=== PATIENT | female | born 1995 | race Two or more races ===

== ENCOUNTER 2021-04-16 05:15 | Inpatient (IN) | payer BC ==
--- NOTE | 2021-04-16 05:18 | PCM.LDHP ---
L&D History of Present Illness - General Date of Service: 04/16/21 Admit Problem/Dx: Admission Diagnosis/Problem Admission Diagnosis/Problem 04/16/21 05:06 Stefani is a 25-year-old 3 para 2-0-0-2 female admitted on the a.m. of 04/16/2021 at 39-1/7 weeks gestational age with an JIM of 04/21/2021 for elective repeat section. Source of Information: Patient History Limitations: Reports: No Limitations - History of Present Illness Introduction:: Stefani is a 25-year-old 3 para 2-0-0-2 female admitted on the a.m. of 04/16/2021 at 39-1/7 weeks gestational age with an JIM of 04/21/2021 for elective repeat section. The procedure, its risks, benefits, alternatives of care and follow-up were discussed in detail with the patient. She appears understand, wishes to proceed and signed consent. 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 Menarche at age 12. Cycles q. 28 days and regular. Patient was not using any control at the time of conception. Her JIM of 04/21/2021 was set by an ultrasound done at 9-5/7 weeks on 09/21/2020 and supported by yet another ultrasound at 20 weeks gestational age. Her LMP was 07/18/2020 and was fairly certain. Her past obstetric history includes the followin. Female born 03/19/2013 at 39 weeks gestational age7 [facility] [place] [place] due to decreased movement and nonreassuring heart tones. Child's name is Anurag 2. Male born 09/02/2015 at 38 weeks gestational age5 pounds 8 [facility] Due to but due to nonreassuring heart tones proceeded to section. course: Patient was seen for her first bridgette visit at 9 weeks gestation. She was seen on a very regular basis throughout the . Her weight increased from 165.8 pounds to 191 pounds for approximately a 25 pound increase. Her vital signs remained stable throughout the course and her fundal height growth was appropriate. Group B strep screen is negative. She plans to breast-feed. She declined genetic testing during the course of this . She had her Tdap on 02/28/2021. She is rubella immune. Hepatitis A immunizations occurred in 2010. Hepatitis B immunizations occurred in 1996. Meningococcal immunization occurred in 2008. laboratory testing: Blood is a positive with a negative antibody screen. First hemoglobin was 13.6 g/dL and platelets were 183,000. She is rubella immune. RPR was nonreactive. Urine culture was negative. Hepatitis B surface antigen and HIV assays were both negative as were chlamydia and gonorrhea tests. Second trimester hemoglobin was 12.4 g/dL and platelets were 175,000. 1 hour GTT was normal at 100. RPR on 01/16/2021 was nonreactive. Group B strep screen was negative. Allergies: None medications: 1. vitamins 1 daily Past medical history: 1. History of urinary tract infections 2. Anxiety and depression symptoms since age 18 has been on medications in the past but not presently. Past surgical history: 1. x2 2. Adenoidectomy Family history: Mother is alive but has diabetes and asthma and a history of seizures. Maternal grandfather is unknown. Maternal grandmother is se condary to ovarian cancer at an age older than 70. Father is alive with hypertension and hyperlipidemia. Paternal grandfather history is uncertain. Paternal grandmother deceasedcause unknown. 2 brothers are alive and well. 2 sisters are alive. One with bipolar disorder. There is a family history of cancer but type is unknown. There is no family history of bleeding, clotting, anesthesia related problems or concerns. Social history: Stefani is . is Jonas Escudero. 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 They live in [place], [place]. She does not use any significant muscle alcohol, drugs or tobacco. Review of systems: In general patient has no complaints. The baby has been active. She has had intermittent Chip Castillo contractions. Skin: Negative Lungs: No infectious symptoms or shortness of breath Cardiovascular: No chest pain or exercise intolerance Breasts: No lumps, changes in size, pain, dimpling, discharge or axillary or supraclavicular concerns. GI: Normal : Body habitus changes secondary to . Musculoskeletal: Negative Neurological: Negative Physical exam: In general the patient is well-developed, well-nourished, pleasant female of stated age in no acute distress. On last evaluation in clinic on 04/10/2021 blood pressure was 110/78. Weight was 191. heart rate was 131. Pregravid weight was 165.8 and pregravid body mass index was 26.6. Height is 5 feet 6 inches. Skin is warm dry without lesions. HEENT, neck and back within normal limits. Lungs are clear with good breath sounds in all lung scott. Cardiovascular exam shows regular and rhythm without murmurs. Breast exam is deferred having been done at first visit and found to be normal. Patient does plan to breast-feed. Abdomen is gravid with last fundal height at 39.5 inches. Baby in vertex presentation by Eyal maneuvers. Genital exam per digital evaluation last done on 04/04/2021 shows cervix to be closed, very soft, 70% effaced.. Extremities and neurological exam are grossly within normal limits. - Related Data Allergies/Adverse Reactions: Allergies Allergy/AdvReac Type Severity Reaction Status Date / Time No Known Allergies Allergy Verified 04/15/21 14:14 Home Medications: Home Meds Pnv No.95/Ferrous Fum/Folic AC [ Tablet] 1 tab PO DAILY 04/15/21 [History] Past Medical History ELECTRICAL ENGINEERING MANAGER History: Reports: Psychiatric History: Reports: Anxiety, Depression Other Psychiatric History: Not currently on medications, states she is coping well. - Past Surgical History HEENT Surgical History: Reports: Adenoidectomy Social & Family History - Family History Family Medical History: No Pertinent Family History - Tobacco Use Tobacco Use Status *Q: Former Tobacco User Used Tobacco, but Quit: No - Caffeine Use Caffeine Use: Reports: None - Recreational Drug Use Recreational Drug Use: No H&P Review of Systems - Review of Systems: Review Of Systems: See Below L&D Exam - Exam Exam: See Below - Vital Signs Weight: 88.451 kg - Problem List (1) 39 weeks gestation of SNOMED Code(s): 93097455 ICD Code: Z3A.39 - 39 WEEKS GESTATION OF Status: Acute (2) Previous section SNOMED Code(s): 486100270 ICD Code: Z98.891 - HISTORY OF UTERINE SCAR FROM PREVIOUS SURGERY Status: Acute Problem List Initiated/Reviewed/Updated: Yes Assessment/Plan Comment:: 1. Stefani is a 25-year-old 3 para 2-0-0-2 female admitted on the a.m. of 04/16/2021 at 39-1/7 weeks gestational age with an JIM of 04/21/2021 for elective repeat section. The procedure, risk, benefits, alternatives of care and follow-up were discussed in detail with patient. She appears understand and wishes to proceed. Consent has been signed. 2. Group B strep screen negative 3. Patient plans to breast-feed 4. Risk factors for the include history of x2 5. Patient is rubella immune 6. Patient had her Tdap shot in February 2021 7. Blood is A+ Plan: 1. Repeat lower uterine segment transverse section through Pfannenstiel skin incision under spinal block to be performed on 04/16/2021. 2. DVT prophylaxis with SCDs 3. Infection prophylaxis with Ancef 2 g IV preop 4. Support breast-feeding decision 5. Admission laboratory testing consist of CBC, type and screen, RPR, Covid19 testing
[2021-04-16] MEDS ORDERED: Citric Acid/Sodium Citrate Solution 30 ML Cup PO ONE (05:32)
[2021-04-16] MEDS ORDERED: ceFAZolin 2 GM in Premix Bag 1 BAG IV ONE (05:32)
[2021-04-16] MEDS ORDERED: Sodium Chloride 0.9% 10 ML Syringe FLUSH PRN (05:32)
[2021-04-16] MEDS ORDERED: Ondansetron 4 MG/2 ML SDV IVPUSH PRN (05:32)
[2021-04-16] MEDS ORDERED: Metoclopramide 10 MG/2 ML SDV IVPUSH ONE (05:32)
[2021-04-16] MEDS ORDERED: Oxytocin/Lactated Ringers 20 UNIT/1,000 ML BAG IV SCH (05:45)
[2021-04-16] MEDS: Lactated Ringers 1,000 ML IV SCH ×2 (06:23→06:59)
[2021-04-16] MEDS ORDERED: ceFAZolin 1 GM Vial ONE (07:09)
[2021-04-16] MEDS ORDERED: Phenylephrine 1% 10 MG/ML SDV ONE (07:09)
[2021-04-16] MEDS ORDERED: Bupivacaine 0.5% 30 ML SDV ONE (07:09)
[2021-04-16] MEDS ORDERED: Morphine PF 10 MG/10 ML SDV ONE (07:09)
[2021-04-16] MEDS ORDERED: Ketorolac 30 MG/ML SDV ONE (07:10)
[2021-04-16] MEDS ORDERED: Oxytocin 10 Units/1 ML SDV ONE (07:10)
[2021-04-16] MEDS ORDERED: Lactated Ringers 1,000 ML ONE (07:13)
[2021-04-16] MEDS ORDERED: diphenhydrAMINE 50 MG/ML SDV IVPUSH PRN ×2 (08:24→09:59)
--- NOTE | 2021-04-16 08:25 | PCM.POSTAN ---
POST ANESTHESIA ASSESSMENT - MENTAL STATUS Mental Status: Alert, Oriented - VITAL SIGNS Vital Signs: Last Vital Signs Temp 36.5 C 04/16/21 05:39 Pulse 73 04/16/21 05:39 Resp 16 04/16/21 05:39 BP 105/74 04/16/21 05:39 Pulse Ox 98 04/16/21 05:39 - RESPIRATORY Respiratory Status: Respiratory Rate WNL, Airway Patent, O2 Saturation Stable, Supplemental Oxygen - CARDIOVASCULAR CV Status: Pulse Rate WNL - GASTROINTESTINAL GI Status: No Symptoms - PAIN Pain Score: 0 - POST OP HYDRATION Hydration Status: Adequate & Stable - OBSERVATIONS Free Text/Narrative:: no anesthesia complications noted
--- NOTE | 2021-04-16 08:27 | PCM.PREANE ---
Preanesthetic Assessment - Procedure Proposed Procedure: spinal for repeat - Anesthesia/Transfusion/Family Hx Anesthesia History: Prior Anesthesia Without Reaction Family History of Anesthesia Reaction: No Transfusion History: No Prior Transfusion(s) - Review of Systems General: No Symptoms Pulmonary: No Symptoms Cardiovascular: No Symptoms Gastrointestinal: No Symptoms Neurological: No Symptoms Other: Reports: Anxiety - Physical Assessment NPO Status Date: 04/15/21 NPO Status Time: 00:00 Vital Signs: Last Vital Signs Temp 36.5 C 04/16/21 05:39 Pulse 73 04/16/21 05:39 Resp 16 04/16/21 05:39 BP 105/74 04/16/21 05:39 Pulse Ox 98 04/16/21 05:39 Height: 1.68 m Weight: 87.543 kg ASA Class: 2 Mental Status: Alert & Oriented x3 Airway Class: Mallampati = 1 Dentition: Reports: Normal Dentition Thyro-Mental Finger Breadths: 3 Mouth Opening Finger Breadths: 3 ROM/Head Extension: Full Lungs: Clear to Auscultation, Normal Respiratory Effort Cardiovascular: Regular Rate, Regular Rhythm - Lab Values: Laboratory Last Values WBC 6.43 K/mm3 (3.98-10.04) 04/16/21 05:40 RBC 3.46 M/mm3 (3.98-5.22) L 04/16/21 05:40 Hgb 11.7 gm/dl (11.2-15.7) 04/16/21 05:40 Hct 34.6 % (34.1-44.9) 04/16/21 05:40 MCV 100.0 fl (79.4-94.8) H 04/16/21 05:40 MCH 33.8 pg (25.6-32.2) H 04/16/21 05:40 MCHC 33.8 g/dl (32.2-35.5) 04/16/21 05:40 RDW Std Deviation 44.5 fL (36.4-46.3) 04/16/21 05:40 Plt Count 137 K/mm3 (182-369) L 04/16/21 05:40 MPV 10.7 fl (9.4-12.3) 04/16/21 05:40 Neut % (Auto) 57.5 % (34.0-71.1) 04/16/21 05:40 Lymph % (Auto) 33.1 % (19.3-51.7) 04/16/21 05:40 [place] % (Auto) 6.8 % (4.7-12.5) 04/16/21 05:40 Eos % (Auto) 1.9 (0.7-5.8) 04/16/21 05:40 Baso % (Auto) 0.2 % (0.1-1.2) 04/16/21 05:40 Neut # (Auto) 3.70 K/mm3 (1.56-6.13) 04/16/21 05:40 Lymph # (Auto) 2.13 K/mm3 (1.18-3.74) 04/16/21 05:40 [place] # (Auto) 0.44 K/mm3 (0.24-0.36) H 04/16/21 05:40 Eos # (Auto) 0.12 K/mm3 (0.04-0.36) 04/16/21 05:40 Baso # (Auto) 0.01 K/mm3 (0.01-0.08) 04/16/21 05:40 Urine Color Light yellow (Yellow) 04/07/21 22:30 Urine Appearance Clear (Clear) 04/07/21 22:30 Urine pH 7.0 (5.0-8.0) 04/07/21 22:30 Ur Specific [place] 1.010 (1.005-1.030) 04/07/21 22:30 Urine Protein Negative (Negative) 04/07/21 22:30 Urine Glucose (UA) Negative (Negative) 04/07/21 22:30 Urine Ketones Negative (Negative) 04/07/21 22:30 Urine Occult Blood Negative (Negative) 04/07/21 22:30 Urine Nitrite Negative (Negative) 04/07/21 22:30 Urine Bilirubin Negative (Negative) 04/07/21 22:30 Urine Urobilinogen 0.2 (0.2-1.0) 04/07/21 22:30 Ur Leukocyte Esterase Negative (Negative) 04/07/21 22:30 Urine RBC 0-5 /hpf (0-5) 04/07/21 22:30 Urine WBC 0-5 /hpf (0-5) 04/07/21 22:30 Ur Squamous Epith Cells 0-5 /hpf (0-5) 04/07/21 22:30 Urine Bacteria Few /hpf (FEW) 04/07/21 22:30 Urine Mucus Few /hpf (FEW) 04/07/21 22:30 SARS-CoV-2 RNA (DELORIS) Negative (NEGATIVE) 04/16/21 05:30 Blood Type A POSITIVE 04/16/21 05:40 Gel Antibody Screen Negative 04/16/21 05:40 - Allergies Allergies/Adverse Reactions: Allergies Allergy/AdvReac Type Severity Reaction Status Date / Time No Known Allergies Allergy Verified 04/15/21 14:14 - Anesthesia Plan Pre-Op Medication Ordered: None - Acknowledgements Anesthesia Type Planned: Spinal Pt an Appropriate Candidate for the Planned Anesthesia: Yes Alternatives and Risks of Anesthesia Discussed w Pt/Guardian: Yes Pt/Guardian Understands and Agrees with Anesthesia Plan: Yes PreAnesthesia Questionnaire Gastrointestinal History: Reports: GERD 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 - Past Surgical History HEENT Surgical History: Reports: Adenoidectomy - SUBSTANCE USE Tobacco Use Status *Q: Former Tobacco User Recreational Drug Use History: No - HOME MEDS Home Medications: Home Meds Pnv No.95/Ferrous Fum/Folic AC [ Tablet] 1 tab PO DAILY 04/15/21 [History] - CURRENT (IN HOUSE) MEDS Current Meds: Current Medications Diphenhydramine HCl (Diphenhydramine 50 Mg/Ml Sdv) 25 mg IVPUSH Q6H PRN PRN Reason: Itching Oxytocin/Lactated Ringer's (Pitocin In Lr 20 Units/1,000 Ml) 20 unit in 1,000 mls @ 500 mls/hr IV TITRATE HARSHA; Protocol Lactated Ringer's (Ringers, Lactated) 1,000 mls @ 125 mls/hr IV ASDIRECTED HARSHA Last Admin: 04/16/21 06:59 Dose: 125 mls/hr Documented by: Ondansetron HCl (Ondansetron 4 Mg/2 Ml Sdv) 4 mg IVPUSH Q4H PRN PRN Reason: Nausea/Vomiting Sodium Chloride (Sodium Chloride 0.9% 10 Ml Syringe) 10 ml FLUSH ASDIRECTED PRN PRN Reason: Keep Vein Open Discontinued Medications Bupivacaine HCl (Bupivacaine 0.5% 30 Ml Sdv) Confirm Administered Dose 30 ml .ROUTE .STK-MED ONE Stop: 04/16/21 07:10 Cefazolin Sodium (Cefazolin 1 Gm Vial) Confirm Administered Dose 2 gm .ROUTE .STK-MED ONE Stop: 04/16/21 07:10 Citric Acid/Sodium Citrate (Citric Acid/Sodium Citrate Solution 30 Ml Cup) 30 ml PO ONETIME ONE Stop: 04/16/21 05:33 Last Admin: 04/16/21 06:59 Dose: 30 ml Documented by: Cefazolin Sodium/Dextrose 2 gm (/ Premix) 50 mls @ 100 mls/hr IV ONETIME ONE Stop: 04/16/21 06:01 Lactated Ringer's (Ringers, Lactated) Confirm Administered Dose 1,000 mls @ as directed .ROUTE .STK-MED ONE Stop: 04/16/21 07:14 Ketorolac Tromethamine (Ketorolac 30 Mg/Ml Sdv) Confirm Administered Dose 30 mg .ROUTE .STK-MED ONE Stop: 04/16/21 07:11 Metoclopramide HCl (Metoclopramide 10 Mg/2 Ml Sdv) 10 mg IVPUSH ONETIME ONE Stop: 04/16/21 05:33 Last Admin: 04/16/21 06:59 Dose: 10 mg Documented by: Morphine Sulfate (Morphine Pf 10 Mg/10 Ml Sdv) Confirm Administered Dose 10 mg .ROUTE .STK-MED ONE Stop: 04/16/21 07:10 Oxytocin (Oxytocin 10 Units/1 Ml Sdv) Confirm Administered Dose 20 unit .ROUTE .STK-MED ONE Stop: 04/16/21 07:11 Phenylephrine HCl (Phenylephrine 1% 10 Mg/Ml Sdv) Confirm Administered Dose 10 mg .ROUTE .STK-MED ONE Stop: 04/16/21 07:10
--- NOTE | 2021-04-16 08:33 | PCM.OPNOTE ---
- General Post-Op/Procedure Note Date of Surgery/Procedure: 04/16/21 Operative Procedure(s): Repeat lower uterine segment transverse section through Pfannenstiel skin incision Findings: Intra-abdominal wall showed moderate scarring. Ovaries uterus and fallopian tubes were consistent with normal term . Amniotic fluid was clear. Baby in cephalic presentation. Nuchal cord x2 loosereduced over the baby's head. Female Apgars 9 and 9, weight 3290 g (7 pounds 4 ounces delivered at 0752 hrs. on 04/16/2021. Pre Op Diagnosis: 1. 39-week . 2. History of previous x2 with desire for repeat section Post-Op Diagnosis: Same Anesthesia Technique: Spinal Other Anesthesia Type: Marcaine 0.5% - 20 mLlocal Primary Surgeon: Eliseo Martin Secondary Surgeon: Msefin Thomas Anesthesia Provider: Charbel Davenport Reason Ropewalk Rope Maker Was Necessary: Retraction, assistance, patient safety, quality of care. Fluid Replacement, Intraop: 2,600 Output, Urine Amount: 125 EBL in mLs: 600 Drain/Tube Comments:: Indwelling bladder catheter Complications: None Condition: Good Free Text/Narrative:: Surgery duration: 25 minutes Surgery duration: Procedure: The patient is appropriately consented. Patient was transferred to the room and placed in a sitting position. Spinal anesthesia was administered. After confirmation of adequate anesthesia patient was placed in a supine position with a wedge under her right side to facilitate left lateral positioning. The patient was prepped and draped in usual fashion after Davalos catheter was already placed . The anesthetic was checked and found to be adequate. 20 mL of Marcaine 0.5% was injected locally in the Pfannenstiel inc ision site. The Pfannenstiel skin incision was then made and carried down through skin, subcutaneous and fascial layers. The fascia was then undermined superiorly and inferiorly to allow for adequate operating room. The recti muscles midline and preperitoneal fat was bluntly dissected. Peritoneal cavity was entered longitudinally. The vesicouterine peritoneum was then incised transversely and bladder flap was developed. Myometrium was found to be very thin no more than 2 mm at the site of incision. Myometrium was incised transversely to the level of the amniotic sac. This incision was extended bilaterally in a blunt fashion. The amniotic sac was then ruptured resulting in clear amniotic fluid. A hand is placed in the low uterine segment and the baby's head was brought forth through the incision. The baby was completely delivered using fundal pressure in a routine fashion. The nose and mouth were bulb suctioned. Baby's cord was clamped x2 cut and baby was handed off to attending outpatient case manager Dr Ledesma. Placenta was expressed after cord blood was obtained. Uterus was then exteriorized to allow for easier closure. The cervix was assessed and found to be dilated adequately to allow egress of blood. The uterus was closed in 2 layers. The first layer a running locked suture of 0 Monocryl, the second layer a running locked vertical mattress suture of 0 Monocryl. Hemostasis confirmed at this time. Sponge instrument needle counts are correct. The uterus was returned to the abdominal cavity and lateral gutters were cleared of blood. Once again sponge needle counts are correct. The anterior abdominal wall was closed with a #1 PDS suture from angle to angle. The subcutaneous area was found to be free of any bleeders. interrupted sutures of 3-0 Monocryl were used to reapproximate the subcutaneous layer.Skin was closed with a running subcuticular stitch of 3-0 Monocryl in a vertical mattress suture fashion using a Ben needle. Prineo mesh/glue was then applied to further approximate the incision. It should be noted that patient received 2 g of Ancef preoperatively for infection prophylaxis and had Pitocin infused after delivery of the placenta to facilitate uterine contraction. She also had sequential compression stockings in place for DVT prophylaxis. Patient was discharged from the operating room in satisfactory condition.
[2021-04-16] MEDS ORDERED: Oxytocin/Lactated Ringers 10 UNIT/1,000 ML BAG IV ONE (08:56)
[2021-04-16] MEDS ORDERED: Oxytocin/Lactated Ringers 10 UNIT/1,000 ML BAG IV SCH (09:05)
[2021-04-16] MEDS ORDERED: Ondansetron 4 MG/2 ML SDV IV PRN (09:59)
[2021-04-16] MEDS ORDERED: Dextrose 5%-Lactated Ringers 1,000 ML IV SCH (09:59)
[2021-04-16] MEDS ORDERED: Naloxone 0.4 MG/ML SDV IVPUSH PRN (09:59)
[2021-04-16] MEDS ORDERED: Docusate Sodium 100 MG Cap PO PRN (09:59)
[2021-04-16] MEDS ORDERED: ePHEDrine 50 MG/ML SDV IVPUSH PRN (09:59)
[2021-04-16] MEDS: Simethicone 80 MG Tab.Chew PO SCH ×4 (10:47→20:51)
[2021-04-16] MEDS: Prenatal Multivitamin with Calcium/Folic Acid/Iron Tab PO SCH (10:47)
[2021-04-16] MEDS ORDERED: Ibuprofen 800 MG Tab PO SCH (13:30)
[2021-04-16] MEDS: Acetaminophen/oxyCODONE 325-5 MG Tab PO PRN ×2 (16:16→20:52)
[2021-04-17] MEDS: Ibuprofen 800 MG Tab PO SCH ×3 (00:32→16:48)
[2021-04-17] MEDS: Acetaminophen/oxyCODONE 325-5 MG Tab PO PRN ×5 (03:41→21:03)
[2021-04-17] MEDS: Prenatal Multivitamin with Calcium/Folic Acid/Iron Tab PO SCH (08:19)
[2021-04-17] MEDS: Simethicone 80 MG Tab.Chew PO SCH ×4 (08:19→21:02)
--- NOTE | 2021-04-17 09:10 | PCM.PNPP ---
- General Info Date of Service: 04/17/21 Functional Status: Reports: Pain Controlled - Review of Systems General: Reports: No Symptoms HEENT: Reports: No Symptoms Pulmonary: Reports: No Symptoms Cardiovascular: Reports: No Symptoms Gastrointestinal: Reports: No Symptoms Genitourinary: Reports: No Symptoms Musculoskeletal: Reports: No Symptoms Skin: Reports: No Symptoms Neurological: Reports: No Symptoms Psychiatric: Reports: No Symptoms - General Info Date of Service: 04/17/21 - Patient Data Vital Signs - Most Recent: Last Vital Signs Temp 36.6 C 04/17/21 03:43 Pulse 64 04/17/21 03:43 Resp 14 04/17/21 07:00 BP 113/74 04/17/21 03:43 Pulse Ox 99 04/17/21 07:00 Weight - Most Recent: 87.543 kg I&O - Last 24 Hours: Intake & Output 04/16/21 04/17/21 04/17/21 22:59 06:59 14:59 Intake Total 180 0 Output Total 1500 1150 Balance -1320 -1150 0 Lab Results - Last 24 Hours: Laboratory Results - last 24 hr 04/16/21 04/17/21 Range/Units 05:40 05:15 WBC 7.88 (3.98-10.04) K/mm3 RBC 2.77 L (3.98-5.22) M/mm3 Hgb 9.4 L D (11.2-15.7) gm/dl Hct 28.0 L (34.1-44.9) % MCV 101.1 H (79.4-94.8) fl MCH 33.9 H (25.6-32.2) pg MCHC 33.6 (32.2-35.5) g/dl RDW Std Deviation 43.9 (36.4-46.3) fL Plt Count 120 L (182-369) K/mm3 MPV 10.8 (9.4-12.3) fl Neut % (Auto) 68.1 (34.0-71.1) % Lymph % (Auto) 23.6 (19.3-51.7) % [place] % (Auto) 6.1 (4.7-12.5) % Eos % (Auto) 1.6 (0.7-5.8) Baso % (Auto) 0.3 (0.1-1.2) % Neut # (Auto) 5.37 (1.56-6.13) K/mm3 Lymph # (Auto) 1.86 (1.18-3.74) K/mm3 [place] # (Auto) 0.48 H (0.24-0.36) K/mm3 Eos # (Auto) 0.13 (0.04-0.36) K/mm3 Baso # (Auto) 0.02 (0.01-0.08) K/mm3 RPR Non-reactive (NONREACTIVE) Med Orders - Current: Current Medications Diphenhydramine HCl (Diphenhydramine 50 Mg/Ml Sdv) 25 mg IVPUSH Q6H PRN PRN Reason: Itching Diphenhydramine HCl (Diphenhydramine 50 Mg/Ml Sdv) 25 mg IVPUSH Q6H PRN PRN Reason: Itching or Nausea Docusate Sodium (Docusate Sodium 100 Mg Cap) 100 mg PO Q12H PRN PRN Reason: Constipation Ephedrine Sulfate (Ephedrine 50 Mg/Ml Sdv) 5 mg IVPUSH SEECOMMENT PRN PRN Reason: Other Oxytocin/Lactated Ringer's (Pitocin In Lr 10 Units/1,000 Ml) 10 unit in 1,000 mls @ 750 mls/hr IV TITRATE HARSHA; Protocol Last Admin: 04/16/21 09:05 Dose: 20.83 munits/min, 125 mls/hr Documented by: Ibuprofen (Ibuprofen 800 Mg Tab) 800 mg PO Q8H [facility] Last Admin: 04/17/21 08:20 Dose: 800 mg Documented by: Naloxone HCl (Naloxone 0.4 Mg/Ml Sdv) 0.1 mg IVPUSH SEECOMMENT PRN PRN Reason: Respiratory Depression Ondansetron HCl (Ondansetron 4 Mg/2 Ml Sdv) 4 mg IV Q4H PRN PRN Reason: Nausea/Vomiting Oxycodone/Acetaminophen (Acetaminophen/Oxycodone 325-5 Mg Tab) 1 tab PO Q4H PRN PRN Reason: Pain (moderate 4-6) Last Admin: 04/17/21 08:22 Dose: 1 tab Documented by: Oxycodone/Acetaminophen (Acetaminophen/Oxycodone 325-5 Mg Tab) 2 tab PO Q4H PRN PRN Reason: Pain (severe 7-10) Last Admin: 04/17/21 03:41 Dose: 2 tab Documented by: Prenat Multivit/[place]/Iron/Folic Ac ( Multivitamin With Calcium/Folic Acid/Iron Tab) 1 each PO DAILY [facility] Last Admin: 04/17/21 08:19 Dose: 1 each Documented by: Simethicone (Simethicone 80 Mg Tab.Chew) 80 mg PO QID [facility] Last Admin: 04/17/21 08:19 Dose: 80 mg Documented by: Discontinued Medications Bupivacaine HCl (Bupivacaine 0.5% 30 Ml Sdv) Confirm Administered Dose 30 ml .ROUTE .STK-MED ONE Stop: 04/16/21 07:10 Last Admin: 04/16/21 07:31 Dose: 20 ml Documented by: Cefazolin Sodium (Cefazolin 1 Gm Vial) Confirm Administered Dose 2 gm .ROUTE .STK-MED ONE Stop: 04/16/21 07:10 Citric Acid/Sodium Citrate (Citric Acid/Sodium Citrate Solution 30 Ml Cup) 30 ml PO ONETIME ONE Stop: 04/16/21 05:33 Last Admin: 04/16/21 06:59 Dose: 30 ml Documented by: Cefazolin Sodium/Dextrose 2 gm (/ Premix) 50 mls @ 100 mls/hr IV ONETIME ONE Stop: 04/16/21 06:01 Last Admin: 04/17/21 09:07 Dose: Not Given Documented by: Oxytocin/Lactated Ringer's (Pitocin In Lr 20 Units/1,000 Ml) 20 unit in 1,000 mls @ 500 mls/hr IV TITRATE HARSHA; Protocol Last Admin: 04/16/21 07:50 Dose: 500 mls/hr Documented by: Lactated Ringer's (Ringers, Lactated) 1,000 mls @ 125 mls/hr IV ASDIRECTED [facility] Last Admin: 04/16/21 06:59 Dose: 125 mls/hr Documented by: Lactated Ringer's (Ringers, Lactated) Confirm Administered Dose 1,000 mls @ as directed .ROUTE .STK-MED ONE Stop: 04/16/21 07:14 Oxytocin/Lactated Ringer's (Pitocin In Lr 10 Units/1,000 Ml) Confirm Administered Dose 10 unit in 1,000 mls @ as directed IV .STK-MED ONE Stop: 04/16/21 08:57 Last Admin: 04/16/21 09:11 Dose: Not Given Documented by: Dextrose/Lactated Ringer's (Dextrose 5%-Lactated Ringers) 1,000 mls @ 125 mls/hr IV ASDIRECTED [facility] Stop: 04/16/21 17:58 Last Admin: 04/16/21 12:59 Dose: 125 mls/hr Documented by: Ibuprofen (Ibuprofen 800 Mg Tab) 800 mg PO Q8H [facility] Last Admin: 04/16/21 16:10 Dose: 800 mg Documented by: Ketorolac Tromethamine (Ketorolac 30 Mg/Ml Sdv) Confirm Administered Dose 30 mg .ROUTE .STK-MED ONE Stop: 04/16/21 07:11 Metoclopramide HCl (Metoclopramide 10 Mg/2 Ml Sdv) 10 mg IVPUSH ONETIME ONE Stop: 04/16/21 05:33 Last Admin: 04/16/21 06:59 Dose: 10 mg Documented by: Morphine Sulfate (Morphine Pf 10 Mg/10 Ml Sdv) Confirm Administered Dose 10 mg .ROUTE .STK-MED ONE Stop: 04/16/21 07:10 Ondansetron HCl (Ondansetron 4 Mg/2 Ml Sdv) 4 mg IVPUSH Q4H PRN PRN Reason: Nausea/Vomiting Oxytocin (Oxytocin 10 Units/1 Ml Sdv) Confirm Administered Dose 20 unit .ROUTE .STK-MED ONE Stop: 04/16/21 07:11 Phenylephrine HCl (Phenylephrine 1% 10 Mg/Ml Sdv) Confirm Administered Dose 10 mg .ROUTE .STK-MED ONE Stop: 04/16/21 07:10 Sodium Chloride (Sodium Chloride 0.9% 10 Ml Syringe) 10 ml FLUSH ASDIRECTED PRN PRN Reason: Keep Vein Open - Infant Interaction Support Person: - Recovery Exam Fundal Tone: Firm Fundal Level: 1 Fingerbreadths Below Umbilicus Fundal Placement: Midline Lochia Amount: Scant Lochia Color: Rubra/Red Perineum Description: Intact, Minimal Bruising/Swelling Episiotomy/Laceration: None Bladder Status: Indwelling Catheter in Place Urinary Elimination: Indwelling Catheter - Exam General: Alert, Oriented HEENT: Pupils Equal Neck: Supple Lungs: Clear to Auscultation, Normal Respiratory Effort Cardiovascular: Regular Rate, Regular Rhythm GI/Abdominal Exam: Normal Bowel Sounds, Soft, Non-Tender, No Organomegaly, No Distention, No Abnormal Bruit, No Mass, Pelvis Stable Extremities: Normal Inspection, Normal Range of Motion, Non-Tender, No Pedal Edema, Normal Capillary Refill Skin: Warm, Dry, Intact Neurological: No New Focal Deficit Psy/Mental Status: Alert, Normal Affect, Normal Mood - Problem List Review Problem List Initiated/Reviewed/Updated: Yes - Assessment Assessment:: POD1 Doing well. No complaints. Hopefully home tomorrow. - Plan Plan:: 1. Stefani is a 25-year-old 3 para 2-0-0-2 female admitted on the a.m. of 04/16/2021 at 39-1/7 weeks gestational age with an JIM of 04/21/2021 for elective repeat section. The procedure, risk, benefits, alternatives of care and follow-up were discussed in detail with patient. She appearsed understand and wished to proceed. Underwent Repeat lower uterine segment transverse section through Pfannenstiel skin incision under spinal block to be performed on 04/16/2021. Doing well Ambulating, voiding and tolerating pos Home tomorrow likely. Pain control and breast feeding support today
--- NOTE | 2021-04-17 09:18 | PCM48HPAN ---
Post Anesthesia Note - EVALUATION WITHIN 48HRS OF ANESTHETIC Vital Signs in Normal Range: Yes Patient Participated in Evaluation: Yes Respiratory Function Stable: Yes Airway Patent: Yes Cardiovascular Function Stable: Yes Hydration Status Stable: Yes Pain Control Satisfactory: Yes Nausea and Vomiting Control Satisfactory: Yes Mental Status Recovered: Yes Vital Signs: Last Vital Signs Temp 36.6 C 04/17/21 03:43 Pulse 64 04/17/21 03:43 Resp 14 04/17/21 07:00 BP 113/74 04/17/21 03:43 Pulse Ox 99 04/17/21 07:00 - COMMENTS/OBSERVATIONS Free Text/Narrative:: no anesthesia complications noted
[2021-04-18] MEDS: Ibuprofen 800 MG Tab PO SCH ×2 (00:36→08:01)
[2021-04-18] MEDS: Acetaminophen/oxyCODONE 325-5 MG Tab PO PRN ×2 (04:08→08:06)
--- NOTE | 2021-04-18 05:58 | PCM.DCSUM1 ---
Discharge Summary - Hospital Course Free Text/Narrative:: Stefani is a 25 y/o G3 now P3-0-0-3 female admitted on 04/16/2021 for an elective repeat . She had a history of x 2 and desired a repeat. See admission H and P. Surgery was performed on 04/16/2021. Findings were as follows: Intra-abdominal wall showed moderate scarring. Ovaries uterus and fallopian tubes were consistent with normal term . Amniotic fluid was clear. Baby in cephalic presentation. Nuchal cord x2 loosereduced over the baby's head. Female infant Apgars 9 and 9, weight 3290 g (7 pounds 4 ounces delivered at 0752 hrs. on 04/16/2021. Pre Op Diagnosis: 1. 39-week . 2. History of previous x2 with desire for repeat section Diagnosis: Stroke: No - Discharge Data Discharge Date: 04/18/21 Discharge Disposition: Home, Self-Care 01 Condition: Good - Referral to Home Health Primary Care Physician: Eliseo Martin MD - Discharge Diagnosis/Problem(s) (1) 39 weeks gestation of SNOMED Code(s): 43336353 ICD Code: Z3A.39 - 39 WEEKS GESTATION OF Status: Acute Current Visit: Yes (2) Previous section SNOMED Code(s): 951590118 ICD Code: Z98.891 - HISTORY OF UTERINE SCAR FROM PREVIOUS SURGERY Status: Acute Current Visit: Yes - Patient Summary/Data Operative Procedure(s) Performed: Repeat lower uterine segment transverse section through Pfannenstiel skin incision - Patient Instructions Diet: Usual Diet as Tolerated (Nursing diet with increased calcium and calories as directed) Activity: As Tolerated (No intercourse or tampons till seen back. No lifting > 15 lbs or driving a car x one week.) Driving: Do Not Drive Showering/Bathing: May Shower Wound/Incision Care: Keep Operative Site/Wound Site Clean and Dry Notify Provider of: Fever, Increased Pain, Swelling and Redness, Drainage - Discharge Plan Prescriptions/Med Rec: Ibuprofen 600 mg PO Q4HR PRN #30 tablet PRN Reason: Pain Home Medications: Home Meds Pnv No.95/Ferrous Fum/Folic AC [ Tablet] 1 tab PO DAILY 04/15/21 [History] Acetaminophen/oxyCODONE [Percocet 325-5 MG] 2 tab PO Q4H PRN tablet 04/18/21 [Rx] Ibuprofen 600 mg PO Q4HR PRN #30 tablet 04/18/21 [Rx] Patient Handouts: Steps to Quit Smoking Referrals: Eliseo Martin MD [Primary Care Provider] - (Return to clinicDr. Martin2 weeks) - Discharge Summary/Plan Comment DC Time >30 min.: No Discharge Summary/Plan Comment: Discharge instructions: 1. Discharge home 2. Diet, activity and follow-up discussed with patient. Recommend nursing diet with increased calories and calcium. 3. Precautions given concern increased pain, bleeding, temperature, signs/symptoms of DVT/PE. 4. Medications per home medication was printed, discussed with and given to the patient. 5. Return to clinic-Dr. Martin-[facility] in 2 weeks. Diagnosis: 1. Term -delivered 2. History of previous with desire for repeat sectiondelivered by repeat section Condition: Good - Patient Data Vitals - Most Recent: Last Vital Signs Temp 36.6 C 04/18/21 03:52 Pulse 69 04/18/21 03:52 Resp 16 04/18/21 03:52 BP 126/63 04/18/21 03:52 Pulse Ox 97 04/18/21 03:52 Weight - Most Recent: 87.543 kg I&O - Last 24 hours: Intake & Output 04/17/21 04/17/21 04/18/21 14:59 22:59 06:59 Intake Total 0 Output Total 650 Balance -650 Med Orders - Current: Current Medications Diphenhydramine HCl (Diphenhydramine 50 Mg/Ml Sdv) 25 mg IVPUSH Q6H PRN PRN Reason: Itching Diphenhydramine HCl (Diphenhydramine 50 Mg/Ml Sdv) 25 mg IVPUSH Q6H PRN PRN Reason: Itching or Nausea Docusate Sodium (Docusate Sodium 100 Mg Cap) 100 mg PO Q12H PRN PRN Reason: Constipation Ephedrine Sulfate (Ephedrine 50 Mg/Ml Sdv) 5 mg IVPUSH SEECOMMENT PRN PRN Reason: Other Oxytocin/Lactated Ringer's (Pitocin In Lr 10 Units/1,000 Ml) 10 unit in 1,000 mls @ 750 mls/hr IV TITRATE HARSHA; Protocol Last Admin: 04/16/21 09:05 Dose: 20.83 munits/min, 125 mls/hr Documented by: Ibuprofen (Ibuprofen 800 Mg Tab) 800 mg PO Q8H [facility] Last Admin: 04/18/21 00:36 Dose: 800 mg Documented by: Naloxone HCl (Naloxone 0.4 Mg/Ml Sdv) 0.1 mg IVPUSH SEECOMMENT PRN PRN Reason: Respiratory Depression Ondansetron HCl (Ondansetron 4 Mg/2 Ml Sdv) 4 mg IV Q4H PRN PRN Reason: Nausea/Vomiting Oxycodone/Acetaminophen (Acetaminophen/Oxycodone 325-5 Mg Tab) 1 tab PO Q4H PRN PRN Reason: Pain (moderate 4-6) Last Admin: 04/17/21 12:15 Dose: 1 tab Documented by: Oxycodone/Acetaminophen (Acetaminophen/Oxycodone 325-5 Mg Tab) 2 tab PO Q4H PRN PRN Reason: Pain (severe 7-10) Last Admin: 04/18/21 04:08 Dose: 2 tab Documented by: Prenat Multivit/[employer]/Iron/Folic Ac ( Multivitamin With Calcium/Folic Acid/Iron Tab) 1 each PO DAILY [facility] Last Admin: 04/17/21 08:19 Dose: 1 each Documented by: Simethicone (Simethicone 80 Mg Tab.Chew) 80 mg PO QID [facility] Last Admin: 04/17/21 21:02 Dose: 80 mg Documented by: Discontinued Medications Bupivacaine HCl (Bupivacaine 0.5% 30 Ml Sdv) Confirm Administered Dose 30 ml .ROUTE .STK-MED ONE Stop: 04/16/21 07:10 Last Admin: 04/16/21 07:31 Dose: 20 ml Documented by: Cefazolin Sodium (Cefazolin 1 Gm Vial) Confirm Administered Dose 2 gm .ROUTE .STK-MED ONE Stop: 04/16/21 07:10 Citric Acid/Sodium Citrate (Citric Acid/Sodium Citrate Solution 30 Ml Cup) 30 ml PO ONETIME ONE Stop: 04/16/21 05:33 Last Admin: 04/16/21 06:59 Dose: 30 ml Documented by: Cefazolin Sodium/Dextrose 2 gm (/ Premix) 50 mls @ 100 mls/hr IV ONETIME ONE Stop: 04/16/21 06:01 Last Admin: 04/17/21 09:07 Dose: Not Given Documented by: Oxytocin/Lactated Ringer's (Pitocin In Lr 20 Units/1,000 Ml) 20 unit in 1,000 mls @ 500 mls/hr IV TITRATE HARSHA; Protocol Last Admin: 04/16/21 07:50 Dose: 500 mls/hr Documented by: Lactated Ringer's (Ringers, Lactated) 1,000 mls @ 125 mls/hr IV ASDIRECTED [facility] Last Admin: 04/16/21 06:59 Dose: 125 mls/hr Documented by: Lactated Ringer's (Ringers, Lactated) Confirm Administered Dose 1,000 mls @ as directed .ROUTE .STK-MED ONE Stop: 04/16/21 07:14 Oxytocin/Lactated Ringer's (Pitocin In Lr 10 Units/1,000 Ml) Confirm Administered Dose 10 unit in 1,000 mls @ as directed IV .STK-MED ONE Stop: 04/16/21 08:57 Last Admin: 04/16/21 09:11 Dose: Not Given Documented by: Dextrose/Lactated Ringer's (Dextrose 5%-Lactated Ringers) 1,000 mls @ 125 mls/hr IV ASDIRECTED [facility] Stop: 04/16/21 17:58 Last Admin: 04/16/21 12:59 Dose: 125 mls/hr Documented by: Ibuprofen (Ibuprofen 800 Mg Tab) 800 mg PO Q8H [facility] Last Admin: 04/16/21 16:10 Dose: 800 mg Documented by: Ketorolac Tromethamine (Ketorolac 30 Mg/Ml Sdv) Confirm Administered Dose 30 mg .ROUTE .STK-MED ONE Stop: 04/16/21 07:11 Metoclopramide HCl (Metoclopramide 10 Mg/2 Ml Sdv) 10 mg IVPUSH ONETIME ONE Stop: 04/16/21 05:33 Last Admin: 04/16/21 06:59 Dose: 10 mg Documented by: Morphine Sulfate (Morphine Pf 10 Mg/10 Ml Sdv) Confirm Administered Dose 10 mg .ROUTE .STK-MED ONE Stop: 04/16/21 07:10 Ondansetron HCl (Ondansetron 4 Mg/2 Ml Sdv) 4 mg IVPUSH Q4H PRN PRN Reason: Nausea/Vomiting Oxytocin (Oxytocin 10 Units/1 Ml Sdv) Confirm Administered Dose 20 unit .ROUTE .STK-MED ONE Stop: 04/16/21 07:11 Phenylephrine HCl (Phenylephrine 1% 10 Mg/Ml Sdv) Confirm Administered Dose 10 mg .ROUTE .STK-MED ONE Stop: 04/16/21 07:10 Sodium Chloride (Sodium Chloride 0.9% 10 Ml Syringe) 10 ml FLUSH ASDIRECTED PRN PRN Reason: Keep Vein Open
[2021-04-18] MEDS: Simethicone 80 MG Tab.Chew PO SCH (08:00)
[2021-04-18] MEDS: Prenatal Multivitamin with Calcium/Folic Acid/Iron Tab PO SCH (08:00)
== END 2021-04-18 08:34 | disposition home or self-care (01) | DRG 540 ==
LOC: JD.OB 05:15
PROVIDERS: ADMIT Obstetrics & Gynecology; ATTEND Obstetrics & Gynecology
PROC: 10D00Z1 Extraction of Products of Conception, Low, Open Approach (ICD-10-PCS; principal; 2021-04-16)
DX: O34.211 Maternal care for low transverse scar from previous cesarean delivery (principal); Z87.891 Personal history of nicotine dependence; O99.62 Diseases of the digestive system complicating childbirth; K21.9 Gastro-esophageal reflux disease without esophagitis; Z20.822 Contact with and (suspected) exposure to COVID-19; Z37.0 Single live birth; Z3A.39 39 weeks gestation of pregnancy
CPT/HCPCS: 01961; 36415; 59025; 81001; 85025; 86592; 86850; 86900; 86901; A9270-GY; J0690; J1885; J2270; J2370; J2590; J2765; J3490; J7120; J7121; U0002